=== PATIENT | female | born 1950 | race Caucasian/White ===

== ENCOUNTER 2024-12-05 10:32 | Day surgery (SDC) | payer MEDICARE ==
[2024-12-05] MEDS ORDERED: dexAMETHasone sodium phosphate IJ ONE (10:33)
[2024-12-05] MEDS ORDERED: Sodium Chloride 0.9(Preservative Free) 10 ML IJ ONE (10:33)
[2024-12-05] MEDS ORDERED: propofoL IV ONE (11:56)
--- NOTE | 2024-12-05 13:24 | XRAY ---
Indication: Left L4-S1 transforaminal MICHELET. Intraoperative fluoroscopy provided for 28 seconds. 6 digital spot image submitted for interpretation demonstrates posterior needle tips projecting over left L4 and L5 nerve roots. Small amount of contrast injected for needle tip placement. Correlate with intraoperative findings/report.
--- NOTE | 2024-12-05 14:38 | XRAY ---
28 seconds of fluoroscopy was used in surgery for a left L4-S1 transforaminal MICHELET.
== END 2024-12-05 12:35 | disposition home or self-care (01) ==
LOC: SDC-PAIN 10:32
PROVIDERS: ATTEND Psychiatry & Neurology Pain Medicine
DX: M54.16 Radiculopathy, lumbar region (principal)
CPT/HCPCS: 64483; 64484; 72100; 77003; J1100; J2704; Q9966

== ENCOUNTER 2025-07-17 10:24 | Day surgery (SDC) | payer MEDICARE ==
[2025-07-17] MEDS ORDERED: methylPREDNISolone acetate IM ONE (10:25)
[2025-07-17] MEDS ORDERED: Sodium Chloride 0.9(Preservative Free) 10 ML IJ ONE (10:25)
[2025-07-17] MEDS ORDERED: propofoL IV ONE (12:04)
[2025-07-17] MEDS ORDERED: Lactated Ringers 1,000 ML IV ONE (13:37)
--- NOTE | 2025-07-17 13:46 | XRAY ---
Indication: Caudal MICHELET. Intraoperative fluoroscopy provided for 37 seconds. 3 digital spot images submitted for interpretation demonstrates caudal needle tip projecting mid sacrum. Small amount of contrast injected for needle tip placement. Correlate with intraoperative findings/report.
--- NOTE | 2025-07-17 13:48 | XRAY ---
37 seconds of fluoroscopy was used in surgery for a caudal MICHELET.
== END 2025-07-17 12:30 | disposition home or self-care (01) ==
LOC: SDC-PAIN 10:24
PROVIDERS: ATTEND Psychiatry & Neurology Pain Medicine
DX: M54.16 Radiculopathy, lumbar region (principal)